=== PATIENT | female | born 1995 | race Hispanic/Latino ===

== ENCOUNTER 2024-02-15 00:31 | Inpatient (IN) | payer BC ==
[2024-02-15 01:00] VITALS: BMI 37.8
[2024-02-15] MEDS: Lactated Ringer's 1,000 ML IV SCH (01:02)
[2024-02-15] MEDS: hydrALAZINE 20 MG/ML VIAL ONE (01:11)
[2024-02-15] MEDS ORDERED: NIFEdipine 10 MG CAP PO PRN (01:18)
[2024-02-15] MEDS ORDERED: Labetalol HCl 100 MG/20 ML VIAL SLOW IVP PRN (01:18)
[2024-02-15] MEDS ORDERED: Lorazepam 2 MG/ML VIAL SLOW IVP PRN (01:18)
[2024-02-15] MEDS ORDERED: Calcium Gluc 4.6 MEQ/10 ML (100 MG/ML) SLOW IVP PRN (01:18)
[2024-02-15] MEDS: NIFEdipine 10 MG CAP ONE (01:26)
[2024-02-15 01:34] LABS: #Basophils 0.04 10x3/uL (0.0-0.2); #Neutrophils 6.43 10x3/uL (1.5-8.4); %Basophils 0.4 % (0.0-2.0); %Lymphocytes 26.6 % (18.0-47.0); %Monocytes 6.9 % (0.0-10.0); %Neutrophils 63.5 % (40.0-75.0); Hematocrit 36.8 % (34.9-44.5); Hemoglobin 13.2 g/dL (12.0-15.5); Mean Corpuscular HGB CONC 35.9 g/dL (32.0-36.0); Mean Corpuscular Volume 83.6 fl (81.6-98.3); Mean Platelet Volume 10.4 fl (7.4-10.4); Platelet Count 298 10x3/uL (150-450); RBC Distribution Width 13.3 % (11.5-14.5); White Blood Cell (WBC) Count 10.1 10x3/uL (3.5-10.5)
[2024-02-15] MEDS ORDERED: Misoprostol 200 MCG TAB PR PRN (01:41)
[2024-02-15] MEDS ORDERED: Tranexamic Acid 1,000 MG/10 ML VIAL IVP PRN (01:41)
[2024-02-15] MEDS ORDERED: Diphenoxylate HCl/Atropine Tablet PO PRN (01:41)
[2024-02-15] MEDS ORDERED: Promethazine HCl 25 MG/ML VIAL IM PRN (01:41)
[2024-02-15] MEDS ORDERED: Carboprost 250 MCG/ML AMP IM PRN (01:41)
[2024-02-15] MEDS: Magnesium Sulfate 20 gm/500 ml 20 GM/500 ML BAG IVPB SCH (01:42)
[2024-02-15] MEDS ORDERED: Oxytocin 30 units/NS 500 ML 500 ML IV SCH (01:45)
[2024-02-15 01:47] LABS: ALT (SGPT) 56 U/L (8-55); AST (SGOT) 34 U/L (5-34); Albumin 2.8 g/dL (3.5-5.0); Alkaline Phosphatase 85 U/L (40-110); Anion Gap 16 mmol/L (10-20); BUN (Urea Nitrogen) 10 mg/dL (7.0-18.7); Bilirubin, Total 0.2 mg/dL (0.2-1.2); Calc. Creatinine Clearance 236 mL/min (70-130); Calcium 9.5 mg/dL (7.8-10.44); Carbon Dioxide 17 mmol/L (22-29); Chloride 106 mmol/L (98-107); Estimated GFR 127; Glucose 127 mg/dL (70-105); Potassium 3.8 mmol/L (3.5-5.1); Protein, Total 6.8 g/dL (6.0-8.3); Sodium 135 mmol/L (136-145)
[2024-02-15] MEDS: NIFEdipine 10 MG CAP PO PRN (01:51)
[2024-02-15 01:52] LABS: Creatinine, Urine 25.1 mg/dL (47-110)
[2024-02-15] MEDS: Magnesium Sulfate 20 gm/500 ml 20 GM/500 ML BAG ONE (01:52)
[2024-02-15 02:20] LABS: HBsAg Index 0.23 S/CO (0-0.99); Hep B Surf Ag - L&D Non-Reactive S/CO (NonReactive)
[2024-02-15 02:21] LABS: Syphilis Antibody Nonreactive (Nonreactive); Syphilis Antibody Index 0.05 S/CO (<1.00 Non-Reactive)
[2024-02-15] MEDS: Acetaminophen 500 MG TAB PO PRN (05:04)
[2024-02-15] MEDS: Metoclopramide HCl 10 MG (2 mL) VIAL IVP PRN (06:04)
[2024-02-15] MEDS: diphenhydrAMINE 50 MG/ML VIAL IVP PRN ×2 (06:04→07:25)
[2024-02-15] MEDS: Metoclopramide HCl 10 MG (2 mL) VIAL IVP SCH (07:25)
[2024-02-15] MEDS: metFORMIN 500 MG TAB PO SCH (08:13)
[2024-02-15] MEDS: Labetalol HCl 200 MG TAB PO SCH (08:58)
[2024-02-15] MEDS: NIFEdipine XL 30 MG ER.TAB PO SCH (08:59)
[2024-02-15] MEDS: Prenatal Vitamin 1 TAB PO SCH (09:00)
[2024-02-15] MEDS: Fioricet 325/50/40 mg Tablet PO SCH (10:49)
[2024-02-15] MEDS ORDERED: Ondansetron PF 4 MG/2 ML Vial IVP SCH (15:15)
[2024-02-15] MEDS ORDERED: Metoclopramide HCl 10 MG (2 mL) VIAL IVP SCH (15:15)
[2024-02-15] MEDS: Ondansetron PF 4 MG/2 ML Vial IVP PRN (15:22)
[2024-02-15 15:51] LABS: #Basophils 0.03 10x3/uL (0.0-0.2); #Eosinphils 0.13 10x3/uL (0.0-0.5); #Monocytes 0.69 10x3/uL (0.0-1.1); #Neutrophils 6.84 10x3/uL (1.5-8.4); %Basophils 0.3 % (0.0-2.0); %Eosinophils 1.3 % (0.0-6.0); %Lymphocytes 23.9 % (18.0-47.0); %Monocytes 6.8 % (0.0-10.0); %Neutrophils 66.9 % (40.0-75.0); Hematocrit 36.2 % (34.9-44.5); Hemoglobin 12.7 g/dL (12.0-15.5); Mean Corpuscular HGB CONC 35.1 g/dL (32.0-36.0); Mean Corpuscular Volume 85.4 fl (81.6-98.3); Mean Platelet Volume 10.2 fl (7.4-10.4); Platelet Count 281 10x3/uL (150-450); RBC Distribution Width 13.3 % (11.5-14.5); Red Blood Cell (RBC) Count 4.24 10x6/uL (3.90-5.03); White Blood Cell (WBC) Count 10.2 10x3/uL (3.5-10.5)
[2024-02-15 16:16] LABS: ALT (SGPT) 50 U/L (8-55); AST (SGOT) 29 U/L (5-34); Albumin 2.6 g/dL (3.5-5.0); Alkaline Phosphatase 87 U/L (40-110); Anion Gap 18 mmol/L (10-20); BUN (Urea Nitrogen) 10 mg/dL (7.0-18.7); Bilirubin, Total 0.2 mg/dL (0.2-1.2); Calc. Creatinine Clearance 206 mL/min (70-130); Calcium 9.2 mg/dL (7.8-10.44); Carbon Dioxide 17 mmol/L (22-29); Chloride 105 mmol/L (98-107); Estimated GFR 123; Globulin 3.6 g/dL (2.4-3.5); Glucose 121 mg/dL (70-105); Magnesium 2.7 mg/dL (1.6-2.6); Potassium 4.1 mmol/L (3.5-5.1); Protein, Total 6.2 g/dL (6.0-8.3); Sodium 136 mmol/L (136-145)
[2024-02-16] MEDS: hydrALAZINE 20 MG/ML VIAL SLOW IVP PRN ×2 (01:22→19:00)
[2024-02-16] MEDS ORDERED: Labetalol HCl 100 MG/20 ML VIAL ONE (03:56)
[2024-02-16] MEDS ORDERED: Labetalol HCl 100 MG/20 ML VIAL SLOW IVP SCH (04:45)
[2024-02-16] MEDS: NIFEdipine XL 30 MG ER.TAB PO SCH (09:22)
[2024-02-16 17:19] LABS: Group B Streptococcus by PCR DETECTED (NotDetected)
[2024-02-17] MEDS ORDERED: fentaNYL 50 mcg/mL 1 mL Vial SLOW IVP PRN ×2 (07:59→08:25)
[2024-02-17] MEDS ORDERED: Ondansetron PF 4 MG/2 ML Vial IVP PRN ×2 (07:59)
[2024-02-17] MEDS ORDERED: diphenhydrAMINE 50 MG/ML VIAL IVP PRN (07:59)
[2024-02-17] MEDS ORDERED: Meperidine HCl/PF 25 MG (1 mL) VIAL SLOW IVP PRN ×2 (07:59→08:25)
[2024-02-17] MEDS ORDERED: Moisturizing Cream (Eucerin) 113 GM JAR TOP PRN (07:59)
[2024-02-17] MEDS ORDERED: Naloxone HCl 0.4 mg/ml Vial IVP PRN ×2 (07:59)
[2024-02-17] MEDS ORDERED: Naloxone HCl 0.4 mg/ml Vial IV PRN (07:59)
[2024-02-17] MEDS ORDERED: HYDROmorphone 0.5 MG/0.5 ML SYRINGE SLOW IVP PRN (07:59)
[2024-02-17] MEDS ORDERED: Communication Order-Pharmacy FS SCH (08:00)
[2024-02-17] MEDS ORDERED: Ketorolac Tromethamine 30 MG (1 mL) VIAL IVP SCH (08:00)
[2024-02-17] MEDS: NIFEdipine XL 30 MG ER.TAB PO SCH (09:00)
[2024-02-17 12:21] LABS: Analyzer IN Cardio CS NICU; RapidComm Collect By L&D
[2024-02-17 12:22] LABS: Analyzer IN Cardio CS NICU; RapidComm Collect By L & D; pH (Cord, venous) 7.319 (7.250-7.350)
[2024-02-17] MEDS: Promethazine HCl 25 MG/ML VIAL IM PRN (13:25)
[2024-02-17] MEDS: Labetalol HCl 200 MG TAB PO SCH (15:23)
[2024-02-17] MEDS ORDERED: hydrALAZINE 20 MG/ML VIAL SLOW IVP PRN (18:41)
[2024-02-17] MEDS ORDERED: Oxytocin 30 units/NS 500 ML 500 ML IV SCH (18:41)
[2024-02-17] MEDS ORDERED: Lanolin Ointment 7 GM TUBE TOP PRN (18:41)
[2024-02-17] MEDS ORDERED: Acetaminophen 325 MG TAB PO PRN (18:41)
[2024-02-17] MEDS ORDERED: Methylergonovine 0.2 MG/ML VIAL IM PRN (18:41)
[2024-02-17] MEDS ORDERED: Boostrix 0.5 ML (Tdap) VIAL (>/=7 yrs of age) IM ONE (18:41)
[2024-02-17] MEDS ORDERED: Misoprostol 200 MCG TAB PR PRN (18:41)
[2024-02-17] MEDS: HYDROcodone/Acetaminophen 5/325 mg Tablet PO PRN (19:09)
[2024-02-17] MEDS: Famotidine/PF 20 mg/2ml Vial ONE (19:24)
[2024-02-17] MEDS: Hydrocortisone Sod Succ/PF 100 mg/2 ml Vial ONE (19:24)
[2024-02-17] MEDS: Zolpidem Tartrate 5 MG TAB PO SCH (19:24)
[2024-02-17] MEDS: ePHEDrine Sulfate 50 MG/10 ML VIAL ONE (19:24)
[2024-02-17] MEDS: Labetalol HCl 100 MG/20 ML VIAL ONE (19:24)
[2024-02-17] MEDS: Ondansetron PF 4 MG/2 ML Vial ONE (19:25)
[2024-02-17] MEDS: PHENYLEPHRINE-NS 100 MCG/ML 10 ML SYRINGE ONE (19:25)
[2024-02-17] MEDS: Erythromycin Base 0.5% Oint 1 GM TUBE ONE (19:25)
[2024-02-17] MEDS: CEFAZOLIN 2 GM VIAL ONE (19:25)
[2024-02-17] MEDS: Phenylephrine 40 MG/NS 250 ML 250 ML ONE (19:25)
[2024-02-17] MEDS: Dexmedetomidine 200 MCG/2 ML VIAL ONE (19:25)
[2024-02-17] MEDS: Phytonadione Neonatal 1 MG/0.5 ML AMP ONE (19:25)
[2024-02-17] MEDS: Oxytocin 10 UNITS/ML VIAL ONE (19:25)
[2024-02-17] MEDS: Morphine PF 10 MG/10 ML VIAL ONE (19:25)
[2024-02-17] MEDS ORDERED: HYDROcodone/Acetaminophen 5/325 mg Tablet PO PRN (20:00)
[2024-02-17] MEDS: Docusate 100 MG CAP PO SCH (23:32)
[2024-02-18 03:21] LABS: Hematocrit 34.6 % (34.9-44.5); Hemoglobin 11.9 g/dL (12.0-15.5); Mean Corpuscular HGB CONC 34.4 g/dL (32.0-36.0); Mean Corpuscular Volume 84.4 fl (81.6-98.3); Mean Platelet Volume 9.7 fl (7.4-10.4); Platelet Count 262 10x3/uL (150-450); RBC Distribution Width 13.3 % (11.5-14.5); White Blood Cell (WBC) Count 11.5 10x3/uL (3.5-10.5)
[2024-02-18] MEDS: Ketorolac Tromethamine 30 MG (1 mL) VIAL IVP PRN (06:45)
[2024-02-18] MEDS ORDERED: Lanolin Ointment 7 GM TUBE TOP PRN (08:49)
[2024-02-18] MEDS ORDERED: hydrALAZINE 20 MG/ML VIAL SLOW IVP PRN (08:49)
[2024-02-18] MEDS ORDERED: Zolpidem Tartrate 5 MG TAB PO PRN (08:49)
[2024-02-18] MEDS ORDERED: Boostrix 0.5 ML (Tdap) VIAL (>/=7 yrs of age) IM ONE (08:49)
[2024-02-18] MEDS ORDERED: Ondansetron PF 4 MG/2 ML Vial IVP PRN (08:49)
[2024-02-18] MEDS ORDERED: Prenatal Vitamin 1 TAB PO SCH (09:00)
[2024-02-18] MEDS: Labetalol HCl 200 MG TAB PO SCH (10:22)
[2024-02-18] MEDS: Docusate 100 MG CAP PO SCH (10:22)
[2024-02-18] MEDS: Ferrous Sulfate 325 MG TAB PO SCH (10:23)
[2024-02-18] MEDS ORDERED: Ibuprofen 800 MG TAB PO SCH (14:00)
[2024-02-18] MEDS: Ibuprofen 800 MG TAB PO SCH (14:27)
[2024-02-18] MEDS: HYDROcodone/Acetaminophen 5/325 mg Tablet PO PRN (19:24)
[2024-02-18] MEDS: Simethicone Chewable 80 MG TAB PO PRN (19:36)
[2024-02-19] MEDS: Bisacodyl 10 MG SUPP PR PRN (02:25)
[2024-02-19 03:41] LABS: Hematocrit 30.8 % (34.9-44.5); Hemoglobin 10.5 g/dL (12.0-15.5); Mean Corpuscular HGB CONC 34.1 g/dL (32.0-36.0); Mean Corpuscular Hemoglobin 29.4 pg (27.0-33.0); Mean Corpuscular Volume 86.3 fl (81.6-98.3); Mean Platelet Volume 9.9 fl (7.4-10.4); Platelet Count 260 10x3/uL (150-450); RBC Distribution Width 13.6 % (11.5-14.5); Red Blood Cell (RBC) Count 3.57 10x6/uL (3.90-5.03); White Blood Cell (WBC) Count 8.5 10x3/uL (3.5-10.5)
[2024-02-19] MEDS: Prenatal Vitamin 1 TAB PO SCH (09:09)
[2024-02-21] MEDS: HYDROcodone/Acetaminophen 5/325 mg Tablet PO PRN (03:08)
[2024-02-21 07:43] VITALS: BP 147/87
[2024-02-21 17:34] VITALS: TEMP 98
== END 2024-02-21 12:00 | disposition home or self-care (01) | DRG 788 ==
LOC: CSHLD/OP 00:31 → CSHLD 01:42 → OBSVTOIN 02-16 13:52 → CSHLD 02-17 11:26 → CSHPP 02-18 11:10
PROVIDERS: ADMIT Obstetrics & Gynecology; ATTEND Obstetrics & Gynecology
PROC: 10D00Z1 Extraction of Products of Conception, Low, Open Approach (ICD-10-PCS; principal; 2024-02-17)
PROC: 3E033XZ Introduction of Vasopressor into Peripheral Vein, Percutaneous Approach (ICD-10-PCS; 2024-02-17)
DX: O14.14 Severe pre-eclampsia complicating childbirth (principal); Z3A.31 31 weeks gestation of pregnancy; O24.425 Gestational diabetes mellitus in childbirth, controlled by oral hypoglycemic drugs; Z37.0 Single live birth; Z88.5 Allergy status to narcotic agent; O60.14X0 Preterm labor third trimester with preterm delivery third trimester, not applicable or unspecified; O32.1XX0 Maternal care for breech presentation, not applicable or unspecified
CPT/HCPCS: 36415; 36416; 51702; 76819; 80053; 82570; 82805; 83735; 84156; 85025; 85027; 86780; 86850; 86900; 86901; 87340; 87653; 88307; 99285; J0360; J1200; J1720; J1885; J2274; J2405; J2550; J2590; J2765; J3475; J7120; S0028